=== PATIENT | male | born 1950 | race Caucasian/White ===

== ENCOUNTER 2024-12-16 08:09 | Outpatient (CLI) | payer MEDICARE, OTHER, SELFPAY ==
--- NOTE | 2024-12-16 08:15 | MR_ITS ---
WS: [id number] MRI CERVICAL SPINE with and without contrast HISTORY: TENSION-TYPE HEADACHE COMPARISON: None available. Technique: Multiplanar, multisequence noncontrast imaging of the cervical spine. Postcontrast MultiHance 16 mL. Mild increase in cervical lordosis. C3, C4 and C5 retrolisthesis by 2 mm. Disc spaces are mildly narrowed throughout the cervical spine. No fracture or marrow edema. Signal within the cervical cord is normal. Visualized posterior fossa is unremarkable. Craniocervical junction, C1 and C2 relationship, odontoid process and soft tissues are normal. C2-C3: Normal. C3-C4: Small central disc protrusion and moderate foraminal stenosis predominantly due to osteophytes. C4-C5: Mild osteophytic ridging with a moderate LEFT foraminal disc osteophyte complex causing mild stenosis. C5-C6: Mild annular disc bulging and osteophytic ridging. Very mild facet joint arthritis. 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 C6-C7: Mild bilateral facet arthritis. Bilateral foraminal osteophytes resulting in moderate stenosis. C7-T1: Tiny foraminal osteophytes without stenosis. Paraspinal soft tissue are normal. No discitis or osteomyelitis. Very mild LEFT facet joint enhancement at C3-4 due to its mild synovitis. MR/MR cervical spine wo/w [id number] IMPRESSION: 1. Mild increase in the cervical lordosis. 2. 2 mm retrolisthesis of C3, C4 and C5. 3. C3-4: Small central disc protrusion with moderate bilateral foraminal steno sis due to osteophytes. 4. C4-5: Moderate LEFT foraminal disc osteophyte complex causing mild stenosis . 5. C5-6: Moderate bilateral foraminal stenosis due to disc osteophyte disease, LEFT greater than RIGHT. 6. C6-7: Bilateral foraminal osteophytes resulting in moderate stenosis.
--- NOTE | 2024-12-16 08:15 | MR_ITS ---
WS: [id number] MRI BRAIN WITH AND WITHOUT CONTRAST HISTORY: TENSION-TYPE HEADACHE COMPARISON: None available. TECHNIQUE: Multiplanar imaging performed through the brain with MultiHance 16 ml's IV. No acute infarcts are seen. Cramer-white matter differentiation is well preserved. Mild scattered T2 and FLAIR signal hyperintensities from small vessel disease. Mild bilateral hippocampal atrophy. No prior infarct. Unremarkable cerebellum and terri. No susceptibility artifacts or prior lacunar infarcts. Ventricles and extra-axial spaces are normal. Clivus and pituitary gland are normal. Visualized posterior fossa and brainstem are also normal. Postcontrast images are negative for masses or vascular malformations. Dural venous sinuses are normal. Paranasal sinuses: Well aerated with no significant disease. Mastoid air cells: Normal. Calvarium and scalp: Normal. MR/MR head wo/w con [id number] IMPRESSION: 1. No acute infarct. 2. Mild small vessel ischemic changes. No large territory infarct or hemorrhag e. 3. Mild hippocampal atrophy. 4. No intracranial mass. 5. No significant paranasal sinus disease.
[2024-12-16] MEDS: gadobenate dimeglumine 20 mL vial 16 ML IV (09:38)
== END 2024-12-16 08:10 | disposition home or self-care (01) ==
LOC: RAD 08:11
PROVIDERS: PCP Nurse Practitioner; Visit Provider Nurse Practitioner
DX: G44.209 Tension-type headache, unspecified, not intractable (principal); G31.89 Other specified degenerative diseases of nervous system; I67.82 Cerebral ischemia; M43.12 Spondylolisthesis, cervical region; M50.21 Other cervical disc displacement, high cervical region; M25.78 Osteophyte, vertebrae; M48.02 Spinal stenosis, cervical region; M50.322 Other cervical disc degeneration at C5-C6 level; M47.892 Other spondylosis, cervical region; M65.88 Other synovitis and tenosynovitis, other site
CPT/HCPCS: 70553; 72156

== ENCOUNTER → 2025-01-14 11:41 | Outpatient (BNVA) | payer MEDICARE, OTHER, SELFPAY | PROVIDERS: PCP Nurse Practitioner; Referring Provider Nurse Practitioner; Visit Provider Psychiatry & Neurology Neurology | DX: G44.86 Cervicogenic headache (principal); M54.2 Cervicalgia | CPT/HCPCS: 99203 ==